=== PATIENT | male | born 1955 | race Caucasian/White ===

== ENCOUNTER 2017-07-09 12:23 | Emergency (ER) | payer MEDICARE ==
[2017-07-09] MEDS ORDERED: HYDROCODONE/ACETAMINOPHEN 10/325 MG TAB ONE (15:01)
== END 2017-07-09 15:34 | disposition home or self-care (01) ==
LOC: EDH 12:23
DX: H44.89 Other disorders of globe (principal); K21.9 Gastro-esophageal reflux disease without esophagitis; Z72.0 Tobacco use